=== PATIENT | female | born 1935 | race Caucasian/White ===

== ENCOUNTER 2020-01-30 16:59 | Inpatient (IN) | payer MEDICARE ==
[~2020-01-30] VITALS: Ht 172.7 cm; Wt 59.4 kg
--- NOTE | 2020-01-30 17:35 | NUR ---
Pt denies talking any medications.
[2020-01-30 18:18] LABS: BASOPHILS # (AUTO) 0.1 K/uL (0.0-8.0); BASOPHILS % (AUTO) 1.3 % (0.0-2.0); EOSINOPHILS # (AUTO) 0.2 K/uL (0.0-0.7); HEMATOCRIT 41.6 % (31.2-41.9); HEMOGLOBIN 13.8 g/dL (10.9-14.3); LYMPHOCYTES # (AUTO) 2.1 K/uL (20.0-40.0); LYMPHOCYTES % (AUTO) 31.3 % (20.5-51.5); MEAN CORPUSCULAR HEMOGLOBIN 30.3 uug (24.7-32.8); MEAN CORPUSCULAR HGB CONC 33 g/dL (32.3-35.6); MEAN CORPUSCULAR VOLUME 91.1 fL (75.5-95.3); MONOCYTES # (AUTO) 0.4 K/uL (2.0-10.0); NEUTROPHILS # (AUTO) 3.9 K/uL (1.8-8.9); NEUTROPHILS % (AUTO) 58.4 % (38.5-71.5); PLATELET COUNT (AUTO) 201 K/uL (179-408); RED BLOOD CELL COUNT(AUTO) 4.56 MIL/uL (3.63-4.92); WHITE BLOOD COUNT (AUTO) 6.7 K/uL (3.8-11.8)
[2020-01-30 18:26] LABS: *AMPHETAMINE, URINE NEGATIVE (NEGATIVE); *BARBITURATE, URINE NEGATIVE (NEGATIVE); *CANNABINOID, URINE NEGATIVE (NEGATIVE); *COCCAINE, URINE NEGATIVE (NEGATIVE); *OPIATE, URINE NEGATIVE (NEGATIVE); *PHENCYCLIDINE SCREEN,URINE NEGATIVE (NEGATIVE)
[2020-01-30 18:27] LABS: CARBON DIOXIDE 27 mmol/L (21-32); CHLORIDE 103 mmol/L (98-107); CREATININE 0.9 mg/dL (0.6-1.3); GLUCOSE 90 mg/dL (74-106); POTASSIUM 3.7 mmol/L (3.5-5.1); UREA NITROGEN, BLOOD 13 mg/dL (7-18)
[2020-01-30 18:33] LABS: ETHANOL < 3 MG/DL (0-0)
[2020-01-30 18:43] LABS: ALANINE AMINOTRANSFERASE 22 U/L (14-59); ALKALINE PHOSPHATASE 90 U/L (50-136); ASPARTATE AMINOTRANSFERASE 37 U/L (15-37); BILIRUBIN,DIRECT 0.2 mg/dL (0.0-0.2); BILIRUBIN,TOTAL 1.1 mg/dL (0.2-1.0); TOTAL PROTEIN, SERUM 7.5 g/dL (6.4-8.2)
[2020-01-30 18:50] LABS: *BILIRUBIN,URIN NEGATIVE (NEGATIVE); *CLARITY,URINE CLEAR (CLEAR); *COLOR,URINE YELLOW (YELLOW); *KETONES,URINE NEGATIVE (NEGATIVE); *UROBILINOGEN,URINE 0.2 E.U./dl (NORMAL); LEUKOCYTE ESTERASE ,URINE 1+ (NEGATIVE); NITRITE, URINE NEGATIVE (NEGATIVE); UGLUCOSE NEGATIVE (NEGATIVE)
[2020-01-30 18:58] LABS: *BLOOD, URINE TRACE INTACT (NEGATIVE)
--- NOTE | 2020-01-30 19:00 | NUR ---
still for COVID-19 test & results, endorsed to 7pm nurse
--- NOTE | 2020-01-30 19:11 | NUR ---
DELMI SWAB COLLECTED AND HANDED TO SANIA IN THE LAB.
[2020-01-30 19:16] LABS: BACTERIA,URINE NONE SEEN /HPF (NONE SEEN); SQUAMOUS EPITHELIAL CELL,UR FEW /HPF (NONE SEEN)
[2020-01-30] MEDS ORDERED: MAGNESIUM HYDROXIDE 30 ML LIQUID UDC PO PRN (23:30)
[2020-01-30] MEDS ORDERED: BLOOD SUGAR DIAGNOSTIC 1 EACH STRIP VI ONE (23:30)
[2020-01-30] MEDS ORDERED: MAG HYDROX/AL HYDROX/SIMETH 30 ML LIQUID UDC PO PRN (23:30)
[2020-01-30] MEDS ORDERED: OLANZAPINE 10 MG VIAL IM ONE (23:45)
[2020-01-30] MEDS ORDERED: LORAZEPAM 2 MG/1 ML VIAL IM ONE (23:45)
[2020-01-31] MEDS: CEFTRIAXONE 1 G VIAL IM SCH ×2 (00:45→21:43)
--- NOTE | 2020-01-31 00:53 | NUR ---
Admission Note: 84 yr old female brought to MHU from ER via wheel chair via staff. Pt admitted on a 5150 for Danger to Self and Grave Disability under the care of Dr Andrea and Sophia VASQUEZ. VS stable, no c/o pain. According to the hold, patient lives at home alone patient has been aggressive, confused, paranooid, lacks safety awareness and has poor insight as well as impaired judgment. Upon admission pt is A/O X1 to self only, however staff was unable to perform assessment due to her refusing to answer our admission questions, patient became increasing agitated, combative and wanted to leave the unit despite staff explaining the hold status several times. Admission process consents were also declined. Psychiatrist contacted to report her behavior, IM administered on Right and Left Deltoid, no adverse reaction noted. Patient Rights handbook and Advisement given to Pt, rights Pt will need unit orientation as well as reinforcement due to confusion. Q 15 minute rounds initiated for safety.
[2020-01-31 02:51] VITALS: BP 143/79
[2020-01-31] MEDS: LORAZEPAM 0.5 MG TABLET PO PRN ×2 (03:46→13:21)
--- NOTE | 2020-01-31 03:52 | NUR ---
PATIENT NOTED RESTLESS. PT IS HARD TO REDIRECT. ATIVAN 0.5 MG PO PRN GIVEN. WILL CONTINUE TO MONITOR.
[2020-01-31 07:30] VITALS: BP 136/82
[2020-01-31 08:22] LABS: BILIRUBIN,TOTAL 1.5 mg/dL (0.2-1.0); CREATININE 0.9 mg/dL (0.6-1.3); POTASSIUM 3.5 mmol/L (3.5-5.1); TOTAL PROTEIN, SERUM 7.8 g/dL (6.4-8.2)
--- NOTE | 2020-01-31 10:35 | NUR ---
Social Work Initial Discharge Plan: Patient currently resides at [address] [address] Per patient's son Sarmad ([phone]) stated that he would want patient back home upon discharge with home health services arranged and caregiving resources. This keno writer will work with the MD, family, and treatment team to provide proper discharge plan.
--- NOTE | 2020-01-31 10:35 | NUR ---
Social Work Family Contact: dye worker contacted patient's son Sarmad ([phone]) and was able to gather collateral. This check writer salesperson discussed treatment plan and discharge plan.
--- NOTE | 2020-01-31 11:55 | NUR ---
Social Work Family Contact: electrical maintenance worker spoke with patient's daughter Fatuma ([phone]) and stated that she would want her mother to go to a SNF. Per Fatuma, she stated that she should be the main contact because her bother Sarmad is busy. Per Fatuma, she stated that as a family they would want her mother to transition to a SNF.
[2020-01-31] MEDS: DIVALPROEX 125 MG TABLET.DR PO SCH ×2 (12:51→17:50)
--- NOTE | 2020-01-31 14:00 | NUR ---
Social Work Firearms Report: Consumer Sales Representative completed and submitted a [facility] firearms report for 5250 grave disability certification. A copy of report has been placed in patient chart.
[2020-01-31 16:29] VITALS: BP 118/74
--- NOTE | 2020-01-31 17:56 | NUR ---
Gps/Marketing Area Manager- Tried to assist patient during her dinner, restless, in her miguel angel-chair, offered routine pm meds, spits it out med. still refused med.
[2020-01-31] MEDS: QUETIAPINE FUMARATE 25 MG TABLET PO SCH (20:43)
[2020-01-31 20:45] VITALS: BP 119/86
[2020-01-31] MEDS ORDERED: OLANZAPINE 2.5 MG TABLET PO SCH (21:00)
[2020-01-31] MEDS: TEMAZEPAM 7.5 MG CAPSULE PO PRN (22:10)
[2020-02-01 07:30] VITALS: BP 113/71
--- NOTE | 2020-02-01 08:49 | NUR ---
Social Work Coordination of Care: pier worker sent referral to [facility] and bharti Vance ([phone]) will review clinicals.
--- NOTE | 2020-02-01 10:30 | NUR ---
Gps/Marketing And Promotions Manager- Daughter Fatuma from [place] called, and was able to talked to patient, w/ a long conversation.
[2020-02-01] MEDS: DIVALPROEX 125 MG TABLET.DR PO SCH ×3 (10:55→17:47)
[2020-02-01] MEDS: ACETAMINOPHEN 325 MG TABLET PO PRN (14:29)
[2020-02-01] MEDS: LORAZEPAM 0.5 MG TABLET PO PRN (14:30)
--- NOTE | 2020-02-01 14:30 | NUR ---
Gps/Farm General Manager- Agitated, > anxious, banging her table, difficulty redirecting patient, requesting to walk around. Assisted patient to walk around, does not need FWW per patient, tends to lean on her right side, c/o lower back pain, offered tylenol 650 mg. po. hesitancy to take med. was able to take after encouragement. Continent of urine , toileted, removed diaper. Patient stayed in her group therapy interacting fairly well with Rec. therapist. Continue to monitor safety, conversant , extremely anxious.
--- NOTE | 2020-02-01 14:39 | NUR ---
Social Work Note/Individual Therapy: boom worker met with patient for brief counseling to address patient's aggressive and combative behavior. Patient has been cooperative. However, patient does not want to communicate with this film writer. Patient is fixated on discharge and wants to talk to her son. Patient was unable to have a conversation with this film writer. Addendum: 02/01/20 at 1442 by LINDA MURILLO Wrong patient
--- NOTE | 2020-02-01 14:43 | NUR ---
Social Work Note/Individual Therapy: ecclesiastical worker met with patient for brief counseling to address patient's aggressive and combative behavior. Patient appeared to be disorganized, disoriented, and confused. Patient was responding to internal stimuli and was having a full conversation with herself. This verse writer was unable to provide brief therapy. This verse writer actively listened.
[2020-02-01 16:00] VITALS: BP 125/81
[2020-02-01 20:50] VITALS: BP 129/70
[2020-02-01] MEDS: QUETIAPINE FUMARATE 25 MG TABLET PO SCH (21:34)
[2020-02-01] MEDS: CEFTRIAXONE 1 G VIAL IM SCH (21:35)
--- NOTE | 2020-02-02 05:19 | NUR ---
GPS/RN: PT LYING IN HANH-CHAIR IN HALLWAY. A/OX2 WITH NO S/S OF ACUTE DISTRESS, NO SOB NOTED. PT RESPONSIVE VERBALLY. NO BEHAVIOR NOTED, COOPERATIVE WITH DUE MEDICATIONS AND TOLERATED WELL. PT ON CONTINUE ATB THERAPY ROCEPHIN 1GM IM PER UTI. NO ABNORMAL NOTED, AND SKIN SITE INTACT. MONITOR AND KEPT PT COMFORTABLE. Q15/MINS HEAD COUNT ONGOING.
[2020-02-02 08:13] VITALS: BP 119/81
[2020-02-02] MEDS: DIVALPROEX 125 MG TABLET.DR PO SCH ×3 (08:28→16:11)
[2020-02-02] MEDS: LORAZEPAM 0.5 MG TABLET PO PRN ×2 (08:28→16:11)
[2020-02-02 16:05] VITALS: BP 115/54
[2020-02-02 20:03] VITALS: BP 120/52
[2020-02-02] MEDS: QUETIAPINE FUMARATE 25 MG TABLET PO SCH (21:19)
[2020-02-02] MEDS: CEFTRIAXONE 1 G VIAL IM SCH (21:19)
--- NOTE | 2020-02-03 05:47 | NUR ---
Patient slept 8 hours. Received an IM injection of antibiotic last night at 2100. Tolerated well. Monitoring closely for safety. Encouraging patient to shower this am. Needs reinforcement. Bed alarm on and assistance provided as needed. No behavioral issues noted last night.
[2020-02-03] MEDS: LORAZEPAM 0.5 MG TABLET PO PRN ×2 (07:29→16:34)
[2020-02-03 07:30] VITALS: BP 139/76
[2020-02-03] MEDS: DIVALPROEX 125 MG TABLET.DR PO SCH ×3 (08:07→16:34)
--- NOTE | 2020-02-03 15:17 | NUR ---
GPS: Nursing Notes: Thought Disorder: Patient is awake and responding to her name, disoriented, confused, forgetful, impaired judgment, gets easily anxious when redirected, reoriented and redirected during shift, believes that somebody stole her purse from her, believes that she needs to leave because she needs to go to work, argumentative with staff, hyperverbal at times, needs prompting to participate in therapeutic groups, A/Ox1, disorganized, unable to formulate a viable plan for self care, continue with treatment plan.
[2020-02-03 16:00] VITALS: BP 115/67
[2020-02-03 20:00] VITALS: BP 112/65
[2020-02-03] MEDS: CEFTRIAXONE 1 G VIAL IM SCH (20:00)
[2020-02-03] MEDS: QUETIAPINE FUMARATE 25 MG TABLET PO SCH (20:01)
--- NOTE | 2020-02-04 03:45 | NUR ---
Received patient in bed. Awake and oriented x2. Patient appeared to be in a calm and pleasant mood. Cotton Gin Yard Supervisor engaged in a lengthy conversation about patients past but noted that the patient struggled to remember details and at times made no sense. Reorientation provided to patient regarding the current situation of where we are and why she is here. Patient verbalized understanding but then quickly forgot and was asking repetitive questions. medication compliant, monitoring for safety and reorienting patient as needed.
--- NOTE | 2020-02-04 06:06 | NUR ---
Patient slept 7 hours last night and is still in bed. Continuing to monitor for safety and any other issues that may arise.
[2020-02-04 07:30] VITALS: BP 113/63
[2020-02-04] MEDS: LORAZEPAM 0.5 MG TABLET PO PRN ×2 (08:03→14:42)
[2020-02-04] MEDS: DIVALPROEX 125 MG TABLET.DR PO SCH ×3 (08:29→16:05)
--- NOTE | 2020-02-04 10:29 | NUR ---
Social Work Family Contact: castables worker spoke with patient's daughter Fatuma ([phone]) is aware that patient is accepted at [facility]. She is aware and agreeable.
--- NOTE | 2020-02-04 15:10 | NUR ---
Social Work Note/Individual Therapy: ironworker wire fence erector met with patient for brief counseling to address patient's aggressive and combative behavior. Patient has been responding to internal stimuli. Patient is unpredictable and presents with disorganized thought process. Patient is paranoid. Patient is unable to have a meaningful conversation due to her being confusing. This freelance writer was unable to provide brief counseling at this moment.
--- NOTE | 2020-02-04 15:25 | NUR ---
GPS: Nursing Notes: Thought Disorder: Patient is awake and responding to her name, unable to find her room by self, believes that she is leaving today, "I am not suppose to be here... I am not crazy... 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
[2020-02-04 15:33] VITALS: BP 158/78
[2020-02-04] MEDS: ACETAMINOPHEN 325 MG TABLET PO PRN (15:45)
[2020-02-04 20:00] VITALS: BP 150/66
[2020-02-04] MEDS: CEFTRIAXONE 1 G VIAL IM SCH (21:07)
[2020-02-04] MEDS: QUETIAPINE FUMARATE 25 MG TABLET PO SCH (21:08)
--- NOTE | 2020-02-04 23:00 | NUR ---
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 She is however med compliant.Will continue to monitor.
--- NOTE | 2020-02-05 06:41 | NUR ---
SHE SLEPT FOR ABOUT 6:30HRS.
[2020-02-05 07:30] VITALS: BP 107/58
[2020-02-05] MEDS: LORAZEPAM 0.5 MG TABLET PO PRN ×2 (08:08→16:52)
[2020-02-05] MEDS: DIVALPROEX 125 MG TABLET.DR PO SCH ×3 (08:25→17:04)
[2020-02-05] MEDS: ACETAMINOPHEN 325 MG TABLET PO PRN ×2 (08:25→16:52)
[2020-02-05 16:24] VITALS: BP 99/55
[2020-02-05] MEDS: ATORVASTATIN 20 MG TABLET PO SCH (20:01)
[2020-02-05] MEDS: QUETIAPINE FUMARATE 25 MG TABLET PO SCH (20:02)
[2020-02-05 20:28] VITALS: BP 90/53
--- NOTE | 2020-02-06 05:29 | NUR ---
Received patient in bed,awake ,oriented x1.Confused and forgetful, reorientation provided.Calm and in pleasant mood,compliant with medication, slept well throughout the night.Continue safety measures.Will continue to monitor.
[2020-02-06 07:30] VITALS: BP 110/75
[2020-02-06] MEDS: DIVALPROEX 125 MG TABLET.DR PO SCH ×2 (08:32→16:22)
[2020-02-06] MEDS: LORAZEPAM 0.5 MG TABLET PO PRN ×3 (10:10→21:20)
[2020-02-06 16:00] VITALS: BP 123/73
[2020-02-06 20:00] VITALS: BP 147/81
[2020-02-06] MEDS: ATORVASTATIN 20 MG TABLET PO SCH (20:32)
[2020-02-06] MEDS: QUETIAPINE FUMARATE 25 MG TABLET PO SCH (20:33)
--- NOTE | 2020-02-06 22:49 | NUR ---
Patient received in the dinning room while talking to the other patients. Compliant with medication. Walking around and not going to her room, agitated, Ativan 0.5 mg tab administered and effective. No SI. Safety measures maintained.Continue to monitor.
[2020-02-07 07:30] VITALS: BP 124/70
[2020-02-07] MEDS: DIVALPROEX 125 MG TABLET.DR PO SCH ×2 (09:25→16:10)
[2020-02-07] MEDS: LORAZEPAM 0.5 MG TABLET PO PRN ×2 (12:35→23:16)
--- NOTE | 2020-02-07 12:38 | NUR ---
Patient is AAO x 1. NO acute distress noted. VS stable for patient. patient noted being verbally and physically abusive towards staff when told not to enter other male patient's room. Patient also noted being sexually inappropriate towards male patients. Patient noted being very angry and trying to fight the staff nurse. Ativan 0.5mg administered and patient was able to take med after lift supervisor informed patient. Pt. tolerated med well will continue with care.
--- NOTE | 2020-02-07 13:01 | NUR ---
Social Work Note/Individual Therapy: back up worker met with patient for brief counseling to address patient's aggressive and combative behavior. Patient is confused, disorganized, and disoriented. Patient presents with a flat affect. Patient has been talking to herself. Patient requires multiple re-directions. Patient is unpredictable and keeps wandering into other patients rooms. Patient was verbally abusive towards this film writer and stated "You are just like everyone else". This film writer was unable to provide brief counseling at this moment.
[2020-02-07 15:11] VITALS: BP 115/71
--- NOTE | 2020-02-07 15:19 | NUR ---
Patient clam and sitting on a miguel angel-chair by the nurse's station at this time. NO c/o pain, denies SI. VS stable. Patient still noted talking to male patients inappropriately. Patient redirected and informed regarding hospital policy. Cooperative with care and will continue with care.
--- NOTE | 2020-02-07 16:16 | NUR ---
Pt. calm ,took 100% on supplement and evening medication. Safety needs in place and will continue with care.
[2020-02-07] MEDS: ATORVASTATIN 20 MG TABLET PO SCH (20:11)
[2020-02-07] MEDS: QUETIAPINE FUMARATE 25 MG TABLET PO SCH (20:12)
--- NOTE | 2020-02-07 23:45 | NUR ---
Patient received sitting in Ness-chair. Compliant with medication. Got agitated, wanted to go home, stated "I have some guests including Trump in my house". Ativan 0.5 mg tab administered and effective. No SI. Safety measures maintained. Continue to monitor.
[2020-02-08 01:29] VITALS: BP 137/76
[2020-02-08 07:30] VITALS: BP 103/64
[2020-02-08] MEDS: DIVALPROEX 125 MG TABLET.DR PO SCH ×2 (09:26→17:19)
[2020-02-08] MEDS: LORAZEPAM 0.5 MG TABLET PO PRN ×2 (11:43→21:27)
[2020-02-08 16:00] VITALS: BP 129/76
[2020-02-08 20:00] VITALS: BP 116/66
[2020-02-08] MEDS: ATORVASTATIN 20 MG TABLET PO SCH (20:19)
[2020-02-08] MEDS: QUETIAPINE FUMARATE 25 MG TABLET PO SCH (20:20)
--- NOTE | 2020-02-09 02:15 | NUR ---
GPS: PT ON CONTINUE MONITOR WITH NOTED INCREASE AGITATION AND CONFUSE. A/OX1, AND HYPERVERBAL. PT WAS UP IN DAVY-CHAIR AND TRYING TO GET OUT FREQUENTLY. PT WAS AMBULATED AND OFFER TO USE RESTROOM BUT STILL AGITATED. PRN WAS GIVEN AT 2130 DUE TO UNABLE TO REDIRECT OR ORIENT TO REALITY. NOTED EFFECTIVE AND PT AT THIS TIME IN BED ASLEEP. WILL MONITOR AND Q/15MINS HEAD COUNT.
[2020-02-09 07:30] VITALS: BP 121/65
[2020-02-09] MEDS: DIVALPROEX 125 MG TABLET.DR PO SCH ×2 (08:54→16:45)
[2020-02-09] MEDS: LORAZEPAM 0.5 MG TABLET PO PRN (13:20)
[2020-02-09 16:00] VITALS: BP 113/70
--- NOTE | 2020-02-09 17:53 | NUR ---
Patient 1ST Observed awake in room Patient is AO x1, Confused, disorganized, hyperverbal. Patient does not respond to redirection. Delusional behavior. poor insight into current situation. Compliant with medication with staff prompting. V/S signs stable for patient. Continues to require observation as well as maximum redirection from staff in order to ensure patient safety. Patient is awol riksk and wanders into other patients rooms.
[2020-02-09] MEDS: QUETIAPINE FUMARATE 25 MG TABLET PO SCH (20:09)
[2020-02-09] MEDS: ATORVASTATIN 20 MG TABLET PO SCH (20:09)
[2020-02-09 21:20] VITALS: BP 112/63
[2020-02-09] MEDS: TEMAZEPAM 7.5 MG CAPSULE PO PRN (22:23)
--- NOTE | 2020-02-10 00:57 | NUR ---
GPS: Pt received awake sitting in front of nursing station. A/OX1, and verbally responsive. pt very confuse with surrounding and unaware of safety precaution, pt noted walking to others pt rooms. AWOL risk.. pt cooperative with routine. Pt unable to sleep and hyperverbal, restless. prn given to assist pt to sleep. effective and noted asleep now.
[2020-02-10 07:30] VITALS: BP 127/79
[2020-02-10] MEDS: DIVALPROEX 125 MG TABLET.DR PO SCH ×2 (08:20→16:29)
[2020-02-10] MEDS: LORAZEPAM 0.5 MG TABLET PO PRN (08:46)
--- NOTE | 2020-02-10 11:00 | NUR ---
Patient is AAO x1, very confused, noted going to other patients room and when told to leave, patient states its her room and gets agitated. Patient also noted arguing with other patients and hyperverbal. Ativan 0.5mg 1 tab administered and tolerated well. Patient is a little bit calmer now but still noted walking around and still going to different rooms. Noted participating in group activities and interacting with other patients. Safety measures in place and will continue with care.
[2020-02-10 16:00] VITALS: BP 136/70
[2020-02-10] MEDS: ACETAMINOPHEN 325 MG TABLET PO PRN (16:28)
--- NOTE | 2020-02-10 18:23 | NUR ---
Patient calm and in bed resting at this time, VS stable. No acute distress noted. Evening medication administered, compliant with med therapy. Patient c/o pain on left rib informed Mary Taylor, HARNESS PLACER with an order for X-ray. Tylenol 650mg administered for pain and effective. Pt. compliant with care, safety measures in place and will continue with care.
[2020-02-10] MEDS: ATORVASTATIN 20 MG TABLET PO SCH (20:42)
[2020-02-10] MEDS: QUETIAPINE FUMARATE 25 MG TABLET PO SCH (20:42)
[2020-02-10 21:26] VITALS: BP 131/71
[2020-02-11 07:30] VITALS: BP 95/54
--- NOTE | 2020-02-11 08:06 | NUR ---
Social Work Discharge Note: Patient will be discharged to [facility] [address] [place] [address] ([phone]). Please arrange transportation for patient at 12:00pm. Spoke with Rajiv, Admin Coordinator at the facility who states they are ready to accept the patient today. Patients family is aware and agreeable with discharge plan. Patients daughter Fatuma ([phone]) and Sarmad son ([phone]) is also aware and agreeable. Patient is aware and agreeable with discharge plans and presents with calm mood and euthymic affect. Patient is alert and oriented x3-4, is unable to plan for self-care, however, would like to continue receiving care at [facility]. Patient denies any suicidal or homicidal ideation. Patient will follow-up at the facility with (Psychiatrist) Dr. Andrea and (Membership Director) Dr. Smith. Patient presents with euthymic mood and congruent affect.
[2020-02-11] MEDS: DIVALPROEX 125 MG TABLET.DR PO SCH ×2 (08:44→16:11)
--- NOTE | 2020-02-11 11:32 | NUR ---
GPS: Nursing Notes: Cancel Discharge: Patient discharge was cancel due to her aggressive and restless behavior, poor anger management, refusing to follow staff directions, redirected and reoriented, but resistant with nursing care, setting limits, unable to be redirected, Dr. Andrea called back and canceled the discharge. continue to monitor for safety, continue with treatment plan.
[2020-02-11] MEDS: ACETAMINOPHEN 325 MG TABLET PO PRN (12:04)
[2020-02-11] MEDS: LORAZEPAM 0.5 MG TABLET PO PRN (12:05)
[2020-02-11 16:00] VITALS: BP 120/88
[2020-02-11] MEDS ORDERED: DIVALPROEX 125 MG TABLET.DR PO SCH (17:45)
[2020-02-11] MEDS: QUETIAPINE FUMARATE 25 MG TABLET PO SCH (17:57)
[2020-02-11 20:25] VITALS: BP 105/60
[2020-02-11] MEDS: ATORVASTATIN 20 MG TABLET PO SCH (20:36)
--- NOTE | 2020-02-12 06:38 | NUR ---
Received patient in miguel angel chair last night, very tired. Assisted to bed and patient slept on and off for 5.30 hours. This am when patient got up she said " My mother is screaming and woke me up". First Line Production Supervisor attempted to reorient patient to the reality of the situation but this made the patient increasingly agitated. After constant reorienting and redirecting, patient decided to go back to bed. This patient is so confused and unable to have meaningful conversation or remember anything minute to minute. Monitoring patient for safety at this time and potential striking out at others.
[2020-02-12 07:30] VITALS: BP 120/77
[2020-02-12] MEDS: QUETIAPINE FUMARATE 25 MG TABLET PO SCH ×3 (08:24→16:25)
[2020-02-12] MEDS: DIVALPROEX 125 MG TABLET.DR PO SCH ×3 (08:25→16:25)
--- NOTE | 2020-02-12 10:50 | NUR ---
Social Work Note/Individual Therapy: sorting livestock worker met with patient for brief counseling to address patient's aggressive and combative behavior. Patient appeared disorganized and confused. Patient was unable to have a proper conversation due to her dementia. Patient was rambling about uncertain things and talking about her career. Hard to re-direct pt. This sign writer letterer or painter attempted to provide brief therapy.
[2020-02-12 15:15] VITALS: BP 105/56
[2020-02-12] MEDS: ACETAMINOPHEN 325 MG TABLET PO PRN (15:26)
[2020-02-12] MEDS: LORAZEPAM 0.5 MG TABLET PO PRN (15:26)
[2020-02-12 19:51] VITALS: BP 115/71
[2020-02-12] MEDS: ATORVASTATIN 20 MG TABLET PO SCH (20:12)
--- NOTE | 2020-02-12 23:59 | NUR ---
OOB in chair upon initial rounds. AAox2-3 with periods of forgetfulness. Needs attended. VSS. Will monitor patient. Compliant with meds. No signs of agitation nor any confusion noted. Denies any pain nor any discomfort.
--- NOTE | 2020-02-13 06:11 | NUR ---
End of the shift notes: Slept well throughout the night. No acute distress note. VSS. Denies any pain nor any discomfort. All needs known and met. Will monitor patient.
[2020-02-13 07:30] VITALS: BP 130/66
[2020-02-13] MEDS: DIVALPROEX 125 MG TABLET.DR PO SCH ×3 (08:07→16:39)
[2020-02-13] MEDS: QUETIAPINE FUMARATE 25 MG TABLET PO SCH ×3 (08:07→16:38)
[2020-02-13] MEDS: LORAZEPAM 0.5 MG TABLET PO PRN ×2 (10:38→16:38)
--- NOTE | 2020-02-13 14:24 | NUR ---
patient is confused ,wander to male room and get so angry when redirected. 1038 am Ativan 0.5 mg po given for agitation,will continue close monitoring.
[2020-02-13 16:00] VITALS: BP 110/70
[2020-02-13 19:50] VITALS: BP 116/76
[2020-02-13] MEDS: ATORVASTATIN 20 MG TABLET PO SCH (20:21)
--- NOTE | 2020-02-13 20:57 | NUR ---
awake alert and oriented x 1-2 No signs of agitation or restlessness noted. No unruly behavior noted. VSS. Compliant with med. Tolerated po meds well. Will monitor patient. Attended to needs. Fall precautions maintained. Possible d/c to [facility] in am.
--- NOTE | 2020-02-14 06:15 | NUR ---
End of shift notes: Uneventful night. Patient slept well throughout the night. No behavioral issues noted. Kept comfortable. VSS.D/C to [facility] TODAY.
--- NOTE | 2020-02-14 08:00 | NUR ---
Received Patient in room sleeping, in No acute distress; Pt. is AAO x 1, able to express needs with episodes of confusion and forgetfulness. Vital signs stable for patient. Will continue with care.
--- NOTE | 2020-02-14 09:00 | NUR ---
Social Work Discharge Note: Patient will be discharged to [facility] [address] [place] [address] ([phone]). Please arrange transportation for patient at 12:00pm. Spoke with Rajiv, Admin Coordinator at the facility who states they are ready to accept the patient today. Patients family is aware and agreeable with discharge plan. Patients daughter Fatuma ([phone]) and Sarmad son ([phone]) is also aware and agreeable. Patient is aware and agreeable with discharge plans and presents with calm mood and euthymic affect. Patient is alert and oriented x1-2, is unable to plan for self-care, however, would like to continue receiving care at [facility]. Patient denies any suicidal or homicidal ideation. Patient will follow-up at the facility with (Psychiatrist) Dr. Andrea and (Vessel Manager) Dr. Smith. Patient presents with euthymic mood and congruent affect.
[2020-02-14] MEDS: DIVALPROEX 125 MG TABLET.DR PO SCH ×2 (09:05→13:33)
[2020-02-14] MEDS: QUETIAPINE FUMARATE 25 MG TABLET PO SCH ×2 (09:05→13:34)
[2020-02-14] MEDS: ACETAMINOPHEN 325 MG TABLET PO PRN (09:09)
[2020-02-14 11:15] VITALS: BP 90/66
--- NOTE | 2020-02-14 14:50 | NUR ---
Discharge notes: Due meds administered and tolerated well. Vital signs stable. No c/o pain on time of discharge. All discharge paper works and prescriptions prepared by charge nurse. Report given by charge to Loan at [facility]. All belongings verified and sent with patient. Discharge paper works signed by 2 licensed nurses. [facility], assisted by 2 caser shoe parts and left at 14:30pm
== END 2020-02-14 14:30 | DRG 885 ==
LOC: ER 16:59 → GPS 23:13
PROVIDERS: ADMIT Psychiatry & Neurology Psychiatry
DX: F29 Unspecified psychosis not due to a substance or known physiological condition (principal); F03.91 Unspecified dementia, unspecified severity, with behavioral disturbance; N39.0 Urinary tract infection, site not specified; Z91.83 Wandering in diseases classified elsewhere; E78.5 Hyperlipidemia, unspecified; Z73.6 Limitation of activities due to disability
CPT/HCPCS: 36415; 70030-TC; 70450; 71045; 71101; 80164; 80307; 80329; 84443; 85025; 87086; 93005; A4663; G0480; J0696; J2060; J2358